=== PATIENT | male | born 1970 | race Caucasian/White ===

== ENCOUNTER 2021-07-09 18:15 | Outpatient (CLI) | payer SELFPAY ==
--- NOTE | 2021-07-10 17:00 | Ultrasound Report ---
PROCEDURE: Abdomen Limited INDICATIONS: ABD MASS TECHNIQUE: Real-time focused scanning was performed of the abdomen, with image documentation. COMPARISON: None FINDINGS: There is a supraumbilical fat-containing abdominal hernia appearing partially reducible. Measures 8 mm. In umbilical level hernia is also identified fat-containing, partially reducible. Measures approximately 1.4 cm. IMPRESSION: Partially reducible umbilical and supraumbilical fat-containing hernias. Reviewed by: Windy Velazquez MD on 07/10/2021 4:59 PM PDT Approved by: Windy Velazquez MD on 07/10/2021 4:59 PM PDT Station ID: [id number]
== END 2021-07-09 18:16 | disposition home or self-care (01) ==
LOC: DI 18:15
PROVIDERS: ATTEND Student in an Organized Health Care Education/Training Program
DX: K42.9 Umbilical hernia without obstruction or gangrene (principal); K43.9 Ventral hernia without obstruction or gangrene